=== PATIENT | male | born 1955 ===

== ENCOUNTER 2020-01-16 11:22 | Emergency (ER) | payer SELFPAY ==
[~2020-01-16] VITALS: Ht 162.6 cm; Wt 75.3 kg
--- NOTE | 2020-01-16 11:37 | ED General ---
General Stated Complaint: COUGH/FEVER/SOB Source of Information: Patient Exam Limitations: No Limitations History of Present Illness Date Seen by Provider: Jan 16, 2020 Time Seen by Provider: 11:36 Initial Comments to ER with chest pain upper abdominal pain shortness of breath general malaise since Friday 3 days ago. No fevers. He has had a cough. He was seen at [facility] and given azithromycin and told to come to ER today if he wasn't improved. He states that he has not had any exposure to any COVID-19 patients. He denies any pre-existing lung conditions or medical diagnoses.he does work at [employer] in [place] with her has been a large number of COVID-19 cases. He was swabbed yesterday at [facility]. Timing/Duration: 2-3 Days Severity: Moderate Associated Systoms: Chest Pain, Cough, Malaise Allergies and Home Medications Allergies Coded Allergies: No Known Drug Allergies (Unverified , 01/16/20) Patient Home Medication List Home Medication List Reviewed: Yes Review of Systems Review of Systems Constitutional: see HPI EENTM: see HPI Respiratory: see HPI, cough, short of breath Cardiovascular: no symptoms reported Genitourinary: no symptoms reported Musculoskeletal: no symptoms reported Skin: no symptoms reported Psychiatric/Neurological: No Symptoms Reported Hematologic/Lymphatic: No Symptoms Reported Past Izzqtfq-Gtiqlt-Ijevnv Hx Patient Social History Recent Foreign Travel: No Contact w/Someone Who Travel: No Physical Exam Vital Signs Vital Signs - First Documented 01/16/20 11:30 Temp 36.8 Pulse 76 Resp 28 B/P (MAP) 138/78 (98) Pulse Ox 96 O2 Delivery Room Air Capillary Refill : Height, Weight, BMI Height: '" Weight: lbs. oz. kg; BMI Method: General Appearance: No Apparent Distress, WD/WN Eyes: Bilateral Eye Normal Inspection, Bilateral Eye PERRL, Bilateral Eye EOMI Neck: Full Range of Motion, Normal Inspection Respiratory: No Accessory Muscle Use, No Respiratory Distress, Other (no distress, lungs are clear, respiratory rate is 28, oxygen saturation 97% on room air) Cardiovascular: Regular Rate, Rhythm, Normal Peripheral Pulses Gastrointestinal: Normal Bowel Sounds, Non Tender, Soft Extremity: Normal Capillary Refill, Normal Inspection Neurologic/Psychiatric: Alert, Oriented x3 Skin: Normal Color, Warm/Dry Progress/Results/Core Measures Suspected Sepsis SIRS Temperature: Pulse: Respiratory Rate: Laboratory Tests 01/16/20 11:45: White Blood Count 11.7H Blood Pressure / Mean: Laboratory Tests 01/16/20 11:45: Creatinine 1.02, Platelet Count 190, Total Bilirubin 0.6 Results/Orders Lab Results Laboratory Tests Test 01/16/20 11:45 Range/Units White Blood Count 11.7 H 4.3-11.0 10^3/uL Red Blood Count 5.14 4.35-5.85 10^6/uL Hemoglobin 15.1 13.3-17.7 G/DL Hematocrit 44 40-54 % Mean Corpuscular Volume 86 80-99 FL Mean Corpuscular Hemoglobin 29 25-34 PG Mean Corpuscular Hemoglobin Concent 34 32-36 G/DL Red Cell Distribution Width 13.2 10.0-14.5 % Platelet Count 190 130-400 10^3/uL Mean Platelet Volume 10.5 H 7.4-10.4 FL Neutrophils (%) (Auto) 83 H 42-75 % Lymphocytes (%) (Auto) 13 12-44 % Monocytes (%) (Auto) 3 0-12 % Eosinophils (%) (Auto) 0 0-10 % Basophils (%) (Auto) 0 0-10 % Neutrophils # (Auto) 9.7 H 1.8-7.8 X 10^3 Lymphocytes # (Auto) 1.6 1.0-4.0 X 10^3 Monocytes # (Auto) 0.4 0.0-1.0 X 10^3 Eosinophils # (Auto) 0.0 0.0-0.3 10^3/uL Basophils # (Auto) 0.0 0.0-0.1 10^3/uL D-Dimer 0.82 H 0.00-0.49 UG/ML Sodium Level 143 135-145 MMOL/L Potassium Level 5.4 H 3.6-5.0 MMOL/L Chloride Level 110 H 98-107 MMOL/L Carbon Dioxide Level 21 21-32 MMOL/L Anion Gap 12 5-14 MMOL/L Blood Urea Nitrogen 22 H 7-18 MG/DL Creatinine 1.02 0.60-1.30 MG/DL Estimat Glomerular Filtration Rate > 60 BUN/Creatinine Ratio 22 Glucose Level 144 H 70-105 MG/DL Calcium Level 8.7 8.5-10.1 MG/DL Corrected Calcium 9.2 8.5-10.1 MG/DL Total Bilirubin 0.6 0.1-1.0 MG/DL Aspartate Amino Transf (AST/SGOT) 62 H 5-34 U/L Alanine Aminotransferase (ALT/SGPT) 33 0-55 U/L Alkaline Phosphatase 75 40-136 U/L Troponin I < 0.028 <0.028 NG/ML C-Reactive Protein High Sensitivity 14.98 H 0.00-0.50 MG/DL Total Protein 7.8 6.4-8.2 GM/DL Albumin 3.4 3.2-4.5 GM/DL Lipase 90 H 8-78 U/L My Orders Orders - KRYSLTE BARRETO APRN Fibrin Degradation Products (01/16/20 11:23) Hs C Reactive Protein (01/16/20 11:23) Cbc With Automated Diff (01/16/20 11:23) Comprehensive Metabolic Panel (01/16/20 11:23) Procalcitonin (Pct) (01/16/20 11:23) Ed Iv/Invasive Line Start (01/16/20 11:23) Chest 1 View, Ap/Pa Only (01/16/20 11:23) Coronavirus Sars-Cov-2 So 2018 (01/16/20 11:23) Ekg Tracing (01/16/20 11:44) Troponin I (01/16/20 11:44) Lipase (01/16/20 11:44) Aspirin Chewable Tablet (Baby Aspirin Ch (01/16/20 11:45) Antacid Suspension (Mylanta Suspension (01/16/20 11:45) Lidocaine 2% Viscous 15 Ml (Xylocaine Vi (01/16/20 11:45) Enoxaparin Injection (Lovenox Injection) (01/16/20 12:45) Dexamethasone Injection (Decadron Inject (01/16/20 12:45) Rx-Albuterol Inhaler (Rx-Ventolin Hfa) (01/16/20 12:36) Medications Given in ED Current Medications Medications Dose Ordered Sig/Amy Route Start Time Stop Time Status Last Admin Dose Admin Al Hydrox/Mg Hydrox/Simethicone 30 ml ONCE ONCE PO 01/16/20 11:45 01/16/20 11:46 DC 01/16/20 12:04 30 ML Aspirin 324 mg ONCE ONCE PO 01/16/20 11:45 01/16/20 11:46 DC 01/16/20 12:00 324 MG Lidocaine HCl 10 ml ONCE ONCE PO 01/16/20 11:45 01/16/20 11:46 DC 01/16/20 12:04 10 ML Vital Signs/I&O 01/16/20 01/16/20 11:30 11:30 Temp 36.8 Pulse 76 Resp 28 B/P (MAP) 138/78 (98) Pulse Ox 96 O2 Delivery Room Air Capillary Refill : Departure Communication (Admissions) [id number] with Dr. Caba, his oxygen saturation is 94-97% on room air, no indication for admission at this time. Spoke with daughter Jessie she will be here to pick and shovel worker the patient and take him home. Patient's with whom he lives will keep an eye on him and return him to ER for any worsening symptoms. Impression Primary Impression: [email or web address] pui Disposition: ADMITTED INPATIENT Condition: Stable Admissions Decision to Admit Reason: Admit from ER (General) Decision to Admit/Date: Jan 16, 2020 Time/Decision to Admit Time: 12:08 Departure-Patient Inst. Decision time for Depature: 12:39 Referrals: UNKNOWN (PCP/Family) Primary Care Physician Patient Instructions: Coronavirus Disease 2019 (COVID-19) (DC) Add. Discharge Instructions: 1. Use Tylenol for any fevers or aches. Return to ER for any worsening shortness of breath, confusion or any other concerns. Follow-up with your doctor by telephone next week. Call tomorrow to make an appointment. KRYSTLE BARRETO APRN Jan 16, 2020 11:37
[2020-01-16] MEDS ORDERED: LIDOCAINE 2% VISCOUS 15 ML UDC PO ONE (11:45)
[2020-01-16] MEDS ORDERED: ANTACID SUSP 30 ML UDC (MYLANTA) PO ONE (11:45)
[2020-01-16] MEDS ORDERED: ASPIRIN 81 MG CHEW (CHILDREN'S ASA) PO ONE (11:45)
[2020-01-16 11:55] LABS: BASOPHILS % (AUTO) 0 % (0-10); EOSINOPHILS % (AUTO) 0 % (0-10); HEMATOCRIT 44 % (40-54); HEMOGLOBIN 15.1 G/DL (13.3-17.7); LYMPHOCYTES # (AUTO) 1.6 X 10^3 (1.0-4.0); LYMPHOCYTES % (AUTO) 13 % (12-44); MEAN CORPUSCULAR HEMOGLOBIN 29 PG (25-34); MEAN CORPUSCULAR HGB CONC 34 G/DL (32-36); MEAN CORPUSCULAR VOLUME 86 FL (80-99); MEAN PLATELET VOLUME 10.5 FL (7.4-10.4); MONOCYTES # (AUTO) 0.4 X 10^3 (0.0-1.0); MONOCYTES % (AUTO) 3 % (0-12); NEUTROPHILS # (AUTO) 9.7 X 10^3 (1.8-7.8); NEUTROPHILS % (AUTO) 83 % (42-75); PLATELET COUNT 190 10^3/uL (130-400); RED CELL DISTRIBUTION WIDTH 13.2 % (10.0-14.5); WHITE BLOOD COUNT 11.7 10^3/uL (4.3-11.0)
[2020-01-16 12:05] LABS: ALBUMIN 3.4 GM/DL (3.2-4.5); CHLORIDE 110 MMOL/L (98-107); SODIUM 143 MMOL/L (135-145)
[2020-01-16 12:07] LABS: CALCIUM 8.7 MG/DL (8.5-10.1)
[2020-01-16 12:08] LABS: GLUCOSE 144 MG/DL (70-105); POTASSIUM 5.4 MMOL/L (3.6-5.0); TOTAL PROTEIN 7.8 GM/DL (6.4-8.2)
[2020-01-16 12:09] LABS: CARBON DIOXIDE 21 MMOL/L (21-32)
[2020-01-16 12:10] LABS: BILIRUBIN,TOTAL 0.6 MG/DL (0.1-1.0)
[2020-01-16 12:11] LABS: ALKALINE PHOSPHATASE 75 U/L (40-136); CREATININE SERUM 1.02 MG/DL (0.60-1.30); GFR ESTIMATED > 60
[2020-01-16 12:12] LABS: BUN/CREATININE RATIO 22
[2020-01-16 12:14] LABS: ALANINE AMINOTRANSFERASE 33 U/L (0-55)
[2020-01-16 12:15] LABS: LIPASE 90 U/L (8-78)
--- NOTE | 2020-01-16 12:33 | Diagnostic Imaging Report ---
Indication: Dyspnea cough and fever. Comparison: None. Discussion: Single portable upright view of the chest was obtained. Normal heart size. Bilateral mixed interstitial and alveolar infiltrates are noted diffusely and bilaterally, greatest in the lung bases, likely pneumonia. No pleural fluid or pneumothorax. No osseous abnormality. Impression: 1. Bilateral pulmonary infiltrates, likely pneumonia. Dictated by: Dictated on workstation # [id number]
[2020-01-16] MEDS ORDERED: RX-ALBUTEROL INHALER (VENTOLIN HFA) 18 GM IH STA (12:36)
--- NOTE | 2020-01-16 12:40 | NUR ---
Utilized circulation analyst via language line to discuss discharge instructions. Pt voices no questions or concerns.
[2020-01-16] MEDS ORDERED: DEXAMETHASONE 10 MG/ML (DECADRON) 1 ML VIAL IV ONE (12:45)
[2020-01-16] MEDS ORDERED: ENOXAPARIN 80 MG/0.8 ML (LOVENOX) SYR SC ONE (12:45)
[2020-01-16 12:59] VITALS: BP 140/78
--- NOTE | 2020-01-16 12:59 | NUR ---
Reviewed discharge instructions with daughter, Jaycee. Proning position described pt daughter et pt for ease of breathing. Jaycee voices no questions or concerns. Contact Info: ([phone])
--- NOTE | 2020-01-17 12:33 | NUR ---
Spoke to cma and patient has been notified he is positive. He said he would call his place of work [place]. Educated on Quarantine. They are very familiar with it.
== END 2020-01-16 12:59 | disposition home or self-care (01) ==
LOC: EDUNIT# 11:22 → ER 11:24
DX: U07.1 COVID-19 (principal)
CPT/HCPCS: 71045; 80053; 83690; 84145; 84484; 85025; 85379; 86141; 99284; U0002; 36415; 87635